=== PATIENT | male | born 1960 | race Caucasian/White ===

== ENCOUNTER 2021-11-14 20:25 | Emergency (ER) | payer BC ==
[2021-11-14] MEDS ORDERED: Diphtheria,Pertussis(Acell),Tetanus Vaccine 0.5 ML Syringe IM ONE (20:28)
[2021-11-14] MEDS ORDERED: Bacitracin Oint 1 GM U/D Packet TOP ONE (21:00)
== END 2021-11-14 21:50 | disposition home or self-care (01) ==
LOC: JP.ED 20:25
DX: S01.01XA Laceration without foreign body of scalp, initial encounter (principal); Z23 Encounter for immunization; W22.09XA Striking against other stationary object, initial encounter
CPT/HCPCS: 12001; 90471; 90715; 99281; 99282-25

== ENCOUNTER 2023-04-01 06:18 | Day surgery (SDC) | payer BC ==
[2023-04-01] MEDS ORDERED: Sodium Chloride 0.9% 1,000 ML IV SCH (06:45)
[2023-04-01] MEDS ORDERED: Midazolam 1 MG/ML 2 ML SDV ONE (06:52)
[2023-04-01] MEDS ORDERED: fentaNYL 50 MCG/ML SDV ONE (06:52)
[2023-04-01] MEDS ORDERED: Propofol 200 MG/20 ML SDV ONE ×2 (06:52→08:02)
== END 2023-04-01 09:32 | disposition home or self-care (01) ==
LOC: JP.SDS 06:18
PROVIDERS: ATTEND Surgery
DX: Z12.11 Encounter for screening for malignant neoplasm of colon (principal); D12.2 Benign neoplasm of ascending colon; K57.30 Diverticulosis of large intestine without perforation or abscess without bleeding
CPT/HCPCS: 45385; J2250; J2704; J3010; J7030; 88305